=== PATIENT | female | born 1960 | race Caucasian/White ===

== ENCOUNTER → 2021-10-22 | Emergency (ER) | payer BC ==
[~2021-10-22] VITALS: Ht 170.2 cm; Wt 72.6 kg
[~2021-10-22] MED LIST: CEPH-548 PO; D5/0.45 NS 1,000 ML IV ONE; cephALEXin 500 MG CAPSULE PO ONE
[2021-10-22 16:59] VITALS: BP_SYST 159
[2021-10-22 18:06] LABS: BASOPHILS % (AUTO) 0.5 % (0.0-2.0); EOSINOPHILS # (AUTO) 0.2 K/uL (0.0-0.4); HEMATOCRIT 40.2 % (36-48); HEMOGLOBIN 13.4 g/dL (12.0-16.0); LYMPHOCYTES # (AUTO) 1.3 K/uL (1.0-5.5); LYMPHOCYTES % (AUTO) 21.9 % (20.5-51.5); MEAN CORPUSCULAR HEMOGLOBIN 31 pg (27-31); MEAN CORPUSCULAR HGB CONC 33 % (32-36); MEAN CORPUSCULAR VOLUME 92 fL (79.0-98.0); MONOCYTES # (AUTO) 0.3 K/uL (0.0-1.0); NEUTROPHILS # (AUTO) 4.2 K/uL (1.8-7.7); NEUTROPHILS % (AUTO) 69.6 % (40.0-70.0); PLATELET COUNT (AUTO) 210 K/uL (130-430); RED BLOOD CELL COUNT(AUTO) 4.36 MIL/uL (4.2-6.2); RED CELL DISTRIBUTION WIDTH 14.4 % (9.0-15.0)
[2021-10-22 18:15] LABS: CALCIUM 10.2 mg/dL (8.4-11.0); CREATININE 0.85 mg/dL (0.55-1.30); POTASSIUM 4.1 mmol/L (3.5-5.1)
[2021-10-22 18:20] LABS: TOTAL BILIRUBIN 0.3 mg/dL (0.0-1.0)
[2021-10-22 18:50] LABS: BILIRUBIN,URINE NEGATIVE (NEGATIVE); BLOOD, URINE NEGATIVE (NEGATIVE); CLARITY/URINE CLEAR (CLEAR); COLOR,URINE YELLOW (YELLOW); GLUCOSE,URINE NEGATIVE (NEGATIVE); KETONES,URINE NEGATIVE (NEGATIVE); LEUKOCYTE ESTERASE ,URINE 1+ (NEGATIVE); NITRITE, URINE NEGATIVE (NEGATIVE); PH,URINE 5.5 (5.0-8.0); PROTEIN URINE NEGATIVE (NEGATIVE); UROBILINOGEN,URINE 0.2 (0.2-1.0)
[2021-10-22 19:00] LABS: RBC,URINE NONE SEEN /HPF (0-3)
[2021-10-22 19:01] LABS: BACTERIA,URINE FEW /HPF (None Seen)
[2021-10-22 19:49] VITALS: BP_SYST 149
== END | disposition home or self-care (01) ==
LOC: SED 16:48
DX: U07.1 COVID-19 (principal); E10.649 Type 1 diabetes mellitus with hypoglycemia without coma; N39.0 Urinary tract infection, site not specified; I10 Essential (primary) hypertension; Z79.899 Other long term (current) drug therapy
CPT/HCPCS: 36415; 71045; 80053; 81000; 82962; 85025; 87086; 99284